=== PATIENT | female | born 1985 | race Caucasian/White ===

== ENCOUNTER 2017-06-11 07:49 | Outpatient (CLI) | payer OTHER | END 2017-06-11 07:50 | disposition home or self-care (01) | DRG 561 | LOC: CONVCARE 07:49 | PROVIDERS: ATTEND Orthopaedic Surgery | DX: S62.647D Nondisplaced fracture of proximal phalanx of left little finger, subsequent encounter for fracture with routine healing (principal) | CPT/HCPCS: 73140 ==